=== PATIENT | male | born 1985 | race American Indian/Alaskan Native ===

== ENCOUNTER 2018-04-22 05:05 | Emergency (ER) | payer OTHER ==
--- NOTE | 2018-04-22 05:10 | ED PDOC ---
Arrival/HPI - General Chief Complaint: Abdominal Pain Time Seen by Provider: 04/22/18 05:08 Historian: Patient - History of Present Illness Narrative History of Present Illness (Text): 04/22/18 05:08 Patient is a 32 year old male with no PMH presenting to the ED with epigastric pain. Patient states that he ate a hamburger at 11PM and started having pain in his abdomen. Patient states that he has had these episodes before in the past and usually resolves on its own. Patient went to the ED today because the pain persisted and he was not able to sleep. He describes the pain to be burning, non -radiating, and 8/10 in severity. He denies chest pain, shortness of breath, N/V /D, or urinary symptoms. Time/Duration: 4-6 hours Symptom Onset: Gradual Symptom Course: Unchanged Quality: Burning Severity Level: 8 Past Medical History - Provider Review Nursing Documentation Reviewed: Yes - Travel History Have you recently traveled outside [place] w/in the past 3 mons?: No - Past History Past History: No Previous Family/Social History - Physician Review Nursing Documentation Reviewed: Yes Family/Social History: Hypertension Smoking Status: Never Smoked Hx Alcohol Use: Yes Frequency of alcohol use: Socially Hx Substance Use: No Allergies/Home Meds Allergies/Adverse Reactions: Allergies No Known Allergies Allergy (Verified 04/22/18 05:16) Home Medications: Home Meds Medication Instructions Recorded Confirmed No Known Home Med 04/22/18 04/22/18 Review of Systems - Physician Review All systems were reviewed & negative as marked: Yes - Review of Systems Constitutional: Normal. absent: Fevers, Night Sweats Eyes: Normal ENT: Normal Respiratory: Normal. absent: SOB, Cough, Wheezing Cardiovascular: Normal. absent: Chest Pain, Palpitations Gastrointestinal: Abdominal Pain. absent: Constipation, Diarrhea, Nausea, Vomiting Genitourinary Male: Normal. absent: Dysuria, Frequency, Hematuria Musculoskeletal: Normal. absent: Arthralgias Skin: Normal. absent: Rash, Pruritis, Skin Lesions Neurological: Normal. absent: Headache, Dizziness Psychiatric: Normal. absent: Anxiety, Depression Physical Exam Vital Signs Reviewed: Yes Vital Signs Temp Pulse Resp BP Pulse Ox 04/22/18 05:22 49 L 04/22/18 05:18 98.7 F 58 L 18 133/88 100 Temperature: Afebrile Blood Pressure: Normal Pulse: Bradycardic Respiratory Rate: Normal Appearance: Positive for: Well-Appearing, Non-Toxic, Comfortable Pain Distress: Moderate Mental Status: Positive for: Alert and Oriented X 3 - Systems Exam Head: Present: Atraumatic, Normocephalic Pupils: Present: PERRL Extroacular Muscles: Present: EOMI Conjunctiva: Present: Normal Mouth: Present: Moist Mucous Membranes Respiratory/Chest: Present: Clear to Auscultation. No: Respiratory Distress, Accessory Muscle Use, Wheezes, Rales, Rhonchi Cardiovascular: Present: Normal S1, S2, Bradycardic. No: Murmurs, Rub, Gallop Abdomen: Present: Tenderness (mild tenderness in epigastric region), Normal Bowel Sounds. No: Distention, Peritoneal Signs, Guarding, McBurney's Point Tender, Rovsing's Sign Present Upper Extremity: Present: Normal Inspection. No: Cyanosis, Edema Lower Extremity: Present: Normal Inspection. No: Edema Neurological: Present: GCS=15, CN II-XII Intact, Speech Normal Skin: Present: Warm, Dry, Normal Color. No: Rashes Psychiatric: Present: Alert, Oriented x 3, Normal Insight, Normal Concentration Medical Decision Making ED Course and Treatment: 04/22/18 05:09 Impression: Patient is a 32 year old male presenting to the ED with epigastric pain. Differential Diagnosis included but are not limited to: - GERD - Pancreatitis Plan: -- CBC -- CMP -- Lipase -- Pepcid -- GI cocktail Progress Notes: 04/22/18 06:08 - Patient states epigastric pain mildly improved with pepcid. GI cocktail ordered. 04/22/18 06:31 - Lipase: WNL - Patient feels better. Patient is stable for discharge. Reassessment Condition: Re-examined, Improved - Lab Interpretations Lab Results: 04/22/18 05:34 04/22/18 05:34 Lab Results 04/22/18 05:34: Sodium 141, Potassium 4.2, Chloride 101, Carbon Dioxide 27, Anion Gap 17, BUN 16, Creatinine 1.0, Est GFR ( Amer) > 60, Est GFR (Non- Af Amer) > 60, Random Glucose 124 H, Calcium 9.0, Lipase 237 04/22/18 05:34: WBC 8.8, RBC 5.33, Hgb 12.9 L, Hct 39.3 L, MCV 73.7 L, MCH 24.2 L, MCHC 32.8, RDW 14.1, Plt Count 274, MPV 9.6, Gran % 81.7 H, Lymph % (Auto) 15.5 L, [place] % (Auto) 2.6, Eos % (Auto) 0.0 L, Baso % (Auto) 0.2, Gran # 7.19 H , Lymph # (Auto) 1.4, [place] # (Auto) 0.2, Eos # (Auto) 0.0, Baso # (Auto) 0.02 - Medication Orders Current Medication Orders: Discontinued Medications Al Hydrox/Mg Hydrox/Simethicone (Maalox Plus 30 Ml) 30 ml PO STAT STA Stop: 04/22/18 06:12 Last Admin: 04/22/18 06:24 Dose: 30 ml Famotidine (Pepcid) 40 mg PO STAT STA Stop: 04/22/18 05:28 Last Admin: 04/22/18 05:37 Dose: 40 mg Lidocaine HCl (Lidocaine 2% Viscous) 15 ml MM ONCE ONE Stop: 04/22/18 06:16 Last Admin: 04/22/18 06:24 Dose: 15 ml Disposition/Present on Arrival - Present on Arrival Any Indicators Present on Arrival: No History of DVT/PE: No History of Uncontrolled Diabetes: No Urinary Catheter: No History of Decub. Ulcer: No - Disposition Have Diagnosis and Disposition been Completed?: Yes Diagnosis: Epigastric pain Disposition: HOME/ ROUTINE Disposition Time: 06:41 Patient Plan: Discharge Patient Problems: Current Active Problems Problem Status Onset Epigastric pain Acute Condition: IMPROVED Discharge Instructions (ExitCare): Acid Reflux (Gastroesophageal Reflux Disease ), Adult (DC) Additional Instructions: EVELIO MURPHY, thank you for letting us take care of you today. Your provider was Arina Elizabeth MD and you were treated for abdominal pain. The emergency medical care you received today was directed at your acute symptoms. If you were prescribed any medication, please fill it and take as directed. It may take several days for your symptoms to resolve. Return to the Emergency Department if your symptoms worsen, do not improve, or if you have any other problems. Please contact your doctor or call one of the physicians/clinics you have been referred to that are listed on the Patient Visit Information form that is included in your discharge packet. Bring any paperwork you were given at discharge with you along with any medications you are taking to your follow up visit. Our treatment cannot replace ongoing medical care by a primary care provider outside of the emergency department. Thank you for allowing the [facility] team to be part of your care today. If you had an X-Ray or CT scan: A Radiologist will review the ED reading if any change in treatment is needed we will contact you. If you had a blood, urine, or wound culture: It will take several days for the results, if any change in treatment is needed we will contact you. If you had an STI test: It will take 48 hours for the results. Please call after 1 week if you have not heard back. Referrals: Guero Olivier [Primary Care Provider] - Follow up with primary Forms: [employer] ([place])
[2018-04-22 05:17] VITALS: BMI 41.8
[2018-04-22 05:19] VITALS: TEMP 98.7; O2SAT 100
[2018-04-22] MEDS ORDERED: Lidocaine 2% Viscous 100 ml PO ONE (06:11)
[2018-04-22] MEDS ORDERED: Alum-Mag Hydrox-Simethicone Susp (30 mL) PO STA (06:11)
[2018-04-22 06:13] LABS: BASO # 0.02 K/mm3 (0.0-2.0); BASO % 0.2 % (0.0-3.0); GRAN # 7.19 (1.4-6.5); GRAN % 81.7 % (50.0-68.0); HEMOGLOBIN 12.9 g/dL (14.0-18.0); LYMPH # 1.4 (1.2-3.4); LYMPH % 15.5 % (22.0-35.0); MEAN CELL VOLUME 73.7 fl (80.0-105.0); MEAN CORPUSCULAR HEMOGLOBIN 24.2 pg (25.0-35.0); MEAN CORPUSCULAR HGB CONC 32.8 g/dl (31.0-37.0); MEAN PLATELET VOLUME 9.6 fl (7.0-11.0); MONO # 0.2 (0.1-0.6); MONO % 2.6 % (1.0-6.0); RBC 5.33 10^6/uL (3.5-6.1); RED CELL DISTRIBUTION WIDTH 14.1 % (11.5-14.5); WHITE BLOOD COUNT 8.8 10^3/ul (4.5-11.0)
[2018-04-22 06:22] LABS: BLOOD UREA NITROGEN 16 mg/dL (7-21); GFR NON-AFRICAN AMERICAN > 60; LIPASE 237 U/L (23-300)
[2018-04-22 06:47] VITALS: BP 150/80; PULSE 57; RESP 17
--- NOTE | 2018-04-22 22:08 | CARD ---
APPROVED REPORT Date of service: 04/22/2018 EKG Measurement Heart [id number] <Conclusion> Marked sinus bradycardia Abnormal ECG
== END 2018-04-22 06:46 | disposition home or self-care (01) ==
LOC: ED 05:05
DX: R10.13 Epigastric pain (principal)